=== PATIENT | male | born 1980 | race Two or more races ===

== ENCOUNTER 2017-02-01 19:48 | Emergency (ER) | payer OTHER ==
[~2017-02-01] VITALS: Ht 190.5 cm; Wt 113.4 kg
[2017-02-01] MEDS ORDERED: ONDANSETRON HCL 4 MG/2 ML VIAL IV ONE ×2 (20:15→23:15)
[2017-02-01] MEDS ORDERED: HYDROmorphone HCL 2 MG/ML VL IV ONE ×2 (20:15→21:15)
[2017-02-01] MEDS ORDERED: TETANUS-DIPTH-ACEL PERTUSSIS 0.5ML SYRG IM ONE (21:15)
[2017-02-01] MEDS ORDERED: CEFTRIAXONE SODIUM 2 GM in D5W 5% 50 ML IV ONE (21:15)
[2017-02-01] MEDS ORDERED: ONDANSETRON HCL 4 MG/2 ML VIAL ONE (22:48)
[2017-02-01] MEDS ORDERED: cefTRIAXone 1GM/50ML D5W 100 ML IV ONE (23:00)
[2017-02-01 23:10] VITALS: BP 179/93
== END 2017-02-01 23:22 | disposition short-term general hospital (02) ==
LOC: ER 19:53
DX: S52.251A Displaced comminuted fracture of shaft of ulna, right arm, initial encounter for closed fracture (principal); S52.252A Displaced comminuted fracture of shaft of ulna, left arm, initial encounter for closed fracture; V89.2XXA Person injured in unspecified motor-vehicle accident, traffic, initial encounter; Y93.89 Activity, other specified; Y92.488 Other paved roadways as the place of occurrence of the external cause; Y99.8 Other external cause status
CPT/HCPCS: 29105; 73090; 90471; 90715; 96365; 96375; 96376; 99285; J0696; J1170; J2405; J7060